=== PATIENT | female | born 1950 ===

== ENCOUNTER 2017-04-03 20:42 | Emergency (ER) | payer OTHER ==
[2017-04-03 20:42] VITALS: BMI 21.5
[2017-04-03 20:56] VITALS: PULSE 110; RESP 20; TEMP 98; O2SAT 99
[2017-04-03] MEDS ORDERED: Acyclovir 500 MG in Sodium Chloride 0.9% 100 ML IV STA (21:38)
[2017-04-03 21:54] LABS: BASO # 0.1 K/uL (0.0-0.2); EOS # 0.1 K/uL (0.0-0.7); EOS % 2.3 % (0.0-4.0); HEMATOCRIT 40.4 % (34.0-47.0); LYMPH # 1.7 K/uL (1.0-4.3); LYMPH % 26.6 % (20.0-40.0); MEAN CELL VOLUME 84.3 fl (81.0-99.0); MEAN CORPUSCULAR HEMOGLOBIN 28.1 pg (27.0-31.0); MEAN CORPUSCULAR HGB CONC 33.4 g/dL (33.0-37.0); MEAN PLATELET VOLUME 8.8 fl (7.2-11.7); MONO # 0.8 K/uL (0.0-0.8); MONO % 12.9 % (0.0-10.0); NEUT # 3.6 K/uL (1.8-7.0); NEUT % 57.2 % (50.0-75.0); RED CELL DISTRIBUTION WIDTH 14.7 % (11.5-14.5); WHITE BLOOD COUNT 6.4 K/uL (4.8-10.8)
--- NOTE | 2017-04-03 21:59 | ED PDOC ---
HPI: Back Time Seen by Provider: 04/03/17 21:02 Chief Complaint (Nursing): Back Pain Chief Complaint (Provider): Back Pain History Per: Patient History/Exam Limitations: no limitations Onset/Duration Of Symptoms: Days (x 1 week) Current Symptoms Are (Timing): Still Present Additional Complaint(s): Analy Beverly is a 67 y/o female who presents to the ED complaining of back pain, ongoing for 1 week. Pain is described as burning, localized to the left side and radiating around to abdomen. Patient saw her PMD on Sunday who prescribed her Meloxicam and Flexeril, without relief. Denies trauma. Also reports a lesion on her back which she believes may have been from a wasp or insect. She was in [place] earlier this month and came back on 03/30/17, and now noticed there is also a lesion on her left abdomen. Denies any dysuria, hematuria, urinary frequency, fever or chills. States being compliant with her medications. PMD: Dr. Harry Past Medical History Reviewed: Historical Data, Nursing Documentation, Vital Signs Vital Signs: Last Vital Signs Temp 98.0 F 04/03/17 20:52 Pulse 110 H 04/03/17 20:52 Resp 20 04/03/17 20:52 BP 206/102 H 04/03/17 20:52 Pulse Ox 99 04/03/17 20:52 - Medical History PMH: Diabetes, HTN - Surgical History Surgical History: Tonsillectomy Other surgeries: Tubal ligation - Family History Family History: States: Unknown Family Hx - Social History Current smoker - smoking cessation education provided: No Alcohol: None Drugs: Denies - Home Medications Home Medications: Ambulatory Orders Medication Instructions Recorded Calamine/Pramoxine [Caladryl] 180 ml EXT PRN PRN #1 bottle 04/03/17 Valacyclovir HCl [Valtrex] 1,000 mg PO TID #21 tablet 04/03/17 traMADol [Ultram] 50 mg PO TID PRN #15 tab 04/03/17 - Allergies Allergies/Adverse Reactions: Allergies Allergy/AdvReac Type Severity Reaction Status Date / Time No Known Allergies Allergy Verified 04/07/15 08:05 Review of Systems ROS Statement: Except As Marked, All Systems Reviewed And Found Negative (as per HPI) Constitutional: Negative for: Fever, Chills Gastrointestinal: Positive for: Abdominal Pain (radiating from back) Genitourinary Female: Negative for: Dysuria, Frequency, Hematuria Musculoskeletal: Positive for: Back Pain (Left-sided) Skin: Positive for: Lesions (to left back and left abdomen) Physical Exam - Reviewed Nursing Documentation Reviewed: Yes Vital Signs Reviewed: Yes - Physical Exam Appears: Positive for: Well, In Acute Distress Head Exam: Positive for: ATRAUMATIC, NORMOCEPHALIC Skin: Positive for: Warm, Dry, Rash (group of erythematous lesions posterior LEFT thoracic area and one isolated erythematous lesion on anterior abdomen just LEFT of midline) Eye Exam: Positive for: EOMI, PERRL ENT: Negative for: Pharyngeal Erythema, Tonsillar Exudate Neck: Positive for: Painless ROM, Supple Cardiovascular/Chest: Positive for: Regular Rate, Rhythm, Chest Non Tender. Negative for: Murmur Respiratory: Positive for: Normal Breath Sounds. Negative for: Wheezing Gastrointestinal/Abdominal: Positive for: Soft. Negative for: Tenderness, Mass , Distended Back: Positive for: Normal Inspection. Negative for: L CVA Tenderness, R CVA Tenderness Extremity: Positive for: Normal ROM. Negative for: Deformity Lymphatic: Negative for: Adenopathy Neurologic/Psych: Positive for: Alert. Negative for: Motor/Sensory Deficits - Laboratory Results Result Diagrams: 04/03/17 21:51 04/03/17 21:51 - ECG O2 Sat by Pulse Oximetry: 99 (RA) Pulse Ox Interpretation: Normal Medical Decision Making Medical Decision Making: Time: 21:29 Impression: Shingles, Hypertension, Hyperglycemia Initial Plan: --Labs --Morphine 2 mg IV --Toradol 15 mg IV --Zovirax 500 mg Inj IV --Reevaluation No emergently significant lab abnormalities On reevaluation pt feeling better and eager to go home. Scribe Attestation: Documented by Florinda Cool, acting as a scribe for Reyna Wolff MD Provider Scribe Attestation: All medical record entries made by the Scribe were at my direction and personally dictated by me. I have reviewed the chart and agree that the record accurately reflects my personal performance of the history, physical exam, medical decision making, and the department course for this patient. I have also personally directed, reviewed, and agree with the discharge instructions and disposition. Disposition - Clinical Impression Clinical Impression: Sharda Counseled Patient/Family Regarding: Studies Performed, Diagnosis, Need For Followup, Rx Given - Disposition Referrals: Walker Harry MD [Staff Provider] - (VISIT DR HARRY IN 7-10 DAYS FOR REEVALUATION) Disposition: Routine/Home Disposition Time: 23:00 Condition: IMPROVED Prescriptions: Calamine/Pramoxine [Caladryl] 180 ml EXT PRN PRN #1 bottle PRN Reason: Itching / Pruritus traMADol [Ultram] 50 mg PO TID PRN #15 tab PRN Reason: SEVERE PAIN ONLY Valacyclovir HCl [Valtrex] 1,000 mg PO TID #21 tablet Instructions: Sharda (ED) Forms: [employer] (Central African) Print Language: FRENCH
[2017-04-03 22:19] LABS: ALB/GLOB RATIO 1.4 (1.0-2.1); ALKALINE PHOSPHATASE 93 U/L (38-126); ALT/SGPT 27 U/L (9-52); AST/SGOT 18 U/L (14-36); BILIRUBIN,TOTAL 0.4 mg/dl (0.2-1.3); BLOOD UREA NITROGEN 18 mg/dl (7-17); CALCIUM 9.2 mg/dL (8.4-10.2); CARBON DIOXIDE 25 mmol/L (22-30); CHLORIDE 103 mmol/L (98-107); GFR AFRICAN-AMERICAN > 60; GLUCOSE,RANDOM 198 mg/dL (65-105); POTASSIUM 4.3 MMOL/L (3.6-5.0); SODIUM 139 mmol/l (132-148); TOTAL PROTEIN 6.9 G/DL (6.3-8.2)
[2017-04-03 23:03] VITALS: BP 136/69
== END 2017-04-03 23:33 | disposition home or self-care (01) ==
LOC: H.ER 20:42
DX: B02.9 Zoster without complications (principal); E11.65 Type 2 diabetes mellitus with hyperglycemia; I10 Essential (primary) hypertension
CPT/HCPCS: 80053; 82948; 85025; 96365; 96375; 99283; J0133; J1885; J2270